=== PATIENT | female | born 1960 | race Caucasian/White ===

== ENCOUNTER → 2019-03-24 08:14 | Outpatient (CLI) | payer OTHER, SELFPAY ==
--- NOTE | 2019-03-24 08:16 | MM_ITS ---
PROCEDURE: MM DIG SCREENING MAMM BI W/CAD CLINICAL INDICATION: Routine Screening Mammogram There is a history of breast cancer patient's 2 paternal aunts COMPARISON: MM SCREENING MAMMOGRAM from 09/24/2014 MM SCREENING MAMMOGRAM from 11/03/2015 [facility] DIG MAMM-SCREEN BRENDA W/CAD from 11/20/2016 TECHNIQUE: Standard CC and MLO images were obtained. R2 CAD reviewed. FINDINGS: Scattered fibroglandular densities are seen in both breast and the findings of bilateral and symmetrical. There are couple of benign-appearing microcalcifications in each breast. There is no suspicious lesion and no suspicious microcalcifications. There is small fatty replaced nodes in both axilla. IMPRESSION: Fibrofatty parenchyma with no suspicious lesions seen BI-RAD Category: 2 Benign Finding(s) FOLLOW-UP: 1YR 1 Year Follow-up (A letter has been sent to the patient regarding results of the study.) Dictated by: Dr. Chung Randall MD 03/24/2019 11:[address] Chung Randall MD in [place] 03/24/2019 11:32
== END ==
PROVIDERS: PCP Emergency Medicine; Visit Provider Nurse Practitioner Obstetrics & Gynecology
DX: Z12.31 Encounter for screening mammogram for malignant neoplasm of breast (principal)
CPT/HCPCS: 77067

== ENCOUNTER → 2020-10-05 07:34 | Outpatient (CLI) | payer BC, SELFPAY ==
--- NOTE | 2020-10-05 07:35 | MM_ITS ---
PROCEDURE: MM DIG SCREENING MAMM BI W/CAD Digital Breast Tomosynthesis Included CLINICAL INDICATION: Routine Screening Mammogram COMPARISON: MG MM SCREENING MAMMOGRAM from 11/03/2015 MG [facility] DIG MAMM-SCREEN BRENDA W/CAD from 11/20/2016 MG MM DIG SCREENING MAMM BI W/CAD from 03/24/2019 TECHNIQUE: Standard CC and MLO images and 3D Tomosynthesis was obtained. R2 CAD reviewed. FINDINGS: There are scattered fibroglandular elements which may obscure a lesion on mammography. No new dominant mass. No suspicious type microcalcifications or indirect evidence of malignancy. IMPRESSION: Normal bilateral digital screening mammograms. BI-RAD Category: 1 Negative FOLLOW-UP: 1 YR 1 Year Follow-up (A letter has been sent to the patient regarding results of the study.) Dictated by: Jae Sweet MD 10/06/2020 17:16 Jae Sweet MD in [place] 10/06/2020 17:16
== END ==
PROVIDERS: PCP Family Medicine; Visit Provider Nurse Practitioner Obstetrics & Gynecology
DX: Z12.31 Encounter for screening mammogram for malignant neoplasm of breast (principal)
CPT/HCPCS: 77063; 77067

== ENCOUNTER → 2021-11-23 09:45 | Outpatient (CLI) | payer BC, SELFPAY ==
--- NOTE | 2021-11-23 09:45 | MM_ITS ---
PROCEDURE INFORMATION: Exam: MG Bilateral Screening 3D Mammography Exam date and time: 11/23/2021 9:40 AM Age: 60 years old Clinical indication: Screening examination TECHNIQUE: Imaging protocol: Bilateral Screening tomosynthesis and 2D mammography including computer-aided detection (CAD) when performed. COMPARISON: 1. MG MM DIG SCREENING MAMM BI W/CAD 10/05/2020 8:19 AM 2. MG MM DIG SCREENING MAMM BI W/CAD 03/24/2019 8:31 AM FINDINGS: MAMMOGRAPHY: Breast composition: There are scattered areas of fibroglandular density. Mass: None. Architectural distortion: None. Calcifications: No suspicious calcifications. Asymmetric density: None. Skin thickening: None. Axillary adenopathy: None. IMPRESSION: No mammographic evidence of malignancy. Annual screening is recommended unless otherwise clinically indicated. ASSESSMENT: BI-RADS Category 1: Negative
== END ==
PROVIDERS: PCP Family Medicine; Visit Provider Nurse Practitioner Obstetrics & Gynecology
DX: Z12.31 Encounter for screening mammogram for malignant neoplasm of breast (principal)
CPT/HCPCS: 77063; 77067

== ENCOUNTER → 2023-01-17 16:50 | Outpatient (CLI) | payer BC, SELFPAY ==
--- NOTE | 2023-01-17 16:51 | MM_ITS ---
PROCEDURE INFORMATION: Exam: MG Bilateral Screening 3D Mammography Exam date and time: 01/17/2023 4:39 PM Age: 62 years old Clinical indication: Screening mammogram TECHNIQUE: Imaging protocol: Bilateral Screening tomosynthesis and 2D mammography including computer-aided detection (CAD) when performed. COMPARISON: 1. MG MM DIG SCREENING MAMM BI W/CAD 11/23/2021 9:40 AM 2. MG MM DIG SCREENING MAMM BI W/CAD 10/05/2020 8:19 AM 3. MG MM DIG SCREENING MAMM BI W/CAD 03/24/2019 8:31 AM 4. MG [facility] DIG MAMM-SCREEN BRENDA W/CAD 11/20/2016 9:21 AM FINDINGS: MAMMOGRAPHY: Breast composition: There are scattered areas of fibroglandular density. Mass: None. Architectural distortion: No new or suspicious architectural distortion. Calcifications: No new or suspicious calcifications are present Asymmetric density: No new or suspicious asymmetric density is present Skin thickening: None. Axillary adenopathy: None. IMPRESSION: No mammographic evidence of malignancy. Recommend annual screening mammography unless otherwise clinically indicated. ASSESSMENT: BI-RADS category 1: Negative
== END ==
PROVIDERS: PCP Family Medicine; Visit Provider Nurse Practitioner Obstetrics & Gynecology
DX: Z12.31 Encounter for screening mammogram for malignant neoplasm of breast (principal)
CPT/HCPCS: 77063; 77067

== ENCOUNTER 2024-07-24 07:55 | Outpatient (CLI) | payer BC, MEDICAID, SELFPAY ==
--- NOTE | 2024-07-24 08:00 | MM_ITS ---
PROCEDURE INFORMATION: Exam: MG Bilateral Screening 3D Mammography Exam date and time: 07/24/2024 8:05 AM Age: 63 years old Clinical indication: Screening mammogram. TECHNIQUE: Imaging protocol: Bilateral Screening tomosynthesis and 2D mammography including computer-aided detection (CAD) when performed. COMPARISON: 1. MG MM DIG SCREENING MAMM BI W/CAD 01/17/2023 4:39 PM 2. MG MM DIG SCREENING MAMM BI W/CAD 11/23/2021 9:40 AM 3. MG MM DIG SCREENING MAMM BI W/CAD 10/05/2020 8:19 AM 4. MG MM DIG SCREENING MAMM BI W/CAD 03/24/2019 8:31 AM FINDINGS: MAMMOGRAPHY: Breast composition: There are scattered areas of fibroglandular density. Mass: None. Architectural distortion: No new or suspicious architectural distortion. Calcifications: No new or suspicious calcifications are present Asymmetric density: No new or suspicious asymmetric density is present Skin thickening: None. Axillary adenopathy: None. IMPRESSION: No mammographic evidence of malignancy. Recommend annual screening mammography unless otherwise clinically indicated. ASSESSMENT: BI-RADS category 1: Negative.
== END 2024-07-24 23:59 | disposition home or self-care (01) ==
LOC: RAD 07:56
PROVIDERS: PCP Nurse Practitioner; Visit Provider Nurse Practitioner Obstetrics & Gynecology
DX: Z12.31 Encounter for screening mammogram for malignant neoplasm of breast (principal)
CPT/HCPCS: 77063; 77067